=== PATIENT | male | born 1955 | race Hispanic/Latino ===

== ENCOUNTER → 2023-03-14 | Day surgery (SDC) | payer MEDICARE ==
[~2023-03-14] MED LIST: ALBUTEROL SULFAT4 MG; BENICAR20 MG PO; DOXAZOSIN MESYLA2 MG PO; EPHEDRINE SULFATE INJ 50 MG/ML VIAL ONE; FLONASE ALLERG9.9 ML INH; LIDOCAINE HCL 2% LOCAL INJ 5 ML SDV VIAL INJ ONE; MIDAZOLAM HCL 2 MG/2 ML VIAL ONE; PRAVASTATIN SOD20 MG PO; PROPOFOL IV EMULSION 10 MG/ML 20 ML VIAL ONE
[2023-03-14 09:52] VITALS: TEMP 97.7
[2023-03-14 10:20] VITALS: BP 114/76; PULSE 65; RESP 12; O2SAT 97
== END | disposition home or self-care (01) ==
LOC: OR 07:38
PROVIDERS: ATTEND Internal Medicine Gastroenterology
DX: Z12.11 Encounter for screening for malignant neoplasm of colon (principal); D12.3 Benign neoplasm of transverse colon; R10.9 Unspecified abdominal pain; K63.89 Other specified diseases of intestine; K57.30 Diverticulosis of large intestine without perforation or abscess without bleeding; K64.8 Other hemorrhoids; K21.9 Gastro-esophageal reflux disease without esophagitis; G47.33 Obstructive sleep apnea (adult) (pediatric); I10 Essential (primary) hypertension; E78.5 Hyperlipidemia, unspecified; Z01.810 Encounter for preprocedural cardiovascular examination; Z79.899 Other long term (current) drug therapy; Z68.37 Body mass index [BMI] 37.0-37.9, adult
CPT/HCPCS: 45380; 45384; 88305; 93005; J2001; J2250; J2704; 45378